=== PATIENT | male | born 1970 | race Caucasian/White ===

== ENCOUNTER → 2016-11-22 | Outpatient (CLI) | payer OTHER ==
[~2016-11-22] VITALS: Ht 170.2 cm; Wt 77.5 kg
[~2016-11-22] MED LIST: BRINTELLIX20 MG PO; FENTANYL PA25 MCG/HR TRANSDERM; FENTANYL PA50 MCG/HR TRANSDERM; FETZIMA20 MG PO; HYDROCODON-ACE1 EAC5 PO; IBUPROFEN 200200 M1 PO; LAMICTAL100 MG PO; REMERON 30 MG T30 M1 PO; SAPHRIS10 MG SL; SOMA PO; VIIBRYD40 MG PO; VYVANSE50 MG PO; Vyvanse PO
--- NOTE | ~2016-11-22 | HPC ---
[facility] [address] [address] [address] PAIN MANAGEMENT CONSULTATION Name: GRACIELA MULLEN Room #: REG PB Shameka.#: [id number] Admission: 11/22/16 Attend Phys: Dillon Conti MD Discharge: Date of : 74 Report #: [id number] THIS REPORT FOR: //name// CC: Chika Conti DATE OF SERVICE: 11/22/2016 Followup visit for management of high risk medication for intractable pain. The patient returns to pain clinic today for renewal of his pain medication, he is on a fentanyl patch 25 mcg, he takes about 1 hydrocodone per day as needed for breakthrough pain at an average. I gave him 90 tablets, which usually last about 3 months. He will take 1 tablet if the pain is severe or before activities and this has done pretty well for him. He has shown no misuse or abuse of medications and he has no significant side effects. 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 and he is getting ready to enter the work force. He and his are planning to take a vacation this weekend. He seems positive and happy about that. Pain score today is zero. It is aided directly by medication. He would like to continue with medication, although we have talked about the possibility of trying to taper further on his fentanyl. We have been able to taper from 50 to 25 and I would like him to consider at some point, we might try and taper further. Using lowest dose of opioids remains our focus. He is on less than the recommended maximum morphine milligram equivalent of 90 by the CDC. We have agreed to continue seeing him for medication under terms of our agreement. PHYSICAL EXAMINATION: Blood pressure 129/80, heart rate 103, BMI is 26.7. He has no pain today with sitting, standing, walking. His gait is normal. No pain across the low back. IMPRESSION: 1. Chronic back pain without radiculopathy due to spondylosis. 2. Management of high risk medications of fentanyl and low dose hydrocodone. 3. Hypertension. RECOMMENDATIONS: Today, I reviewed important issues related to the use of opioids and other potent, centrally-acting medications for the treatment of pain. Rationale for the use of medication is to reduce pain and improve daily activities and function. These activities, individualized for each patient, include simple activities of daily living, improvement in work capabilities, increased involvement in family and other social activities. Improvement in [facility] [address] [place] [address] PAIN MANAGEMENT CONSULTATION Name: GRACIELA MULLEN Room #: REG CLShaggy Antoine#: [id number] Admission: 11/22/16 Attend Phys: Dillon Conti MD Discharge: Date of : 74 Report #: [id number] psychosocial elements of chronic pain were discussed in a broader conversation of wellness that included nonpharmacologic measures to manage pain, suffering and efforts to enhance well being. Remaining as physically active as possible for age and ability plays a tremendous role in the management of chronic pain. This was encouraged. We reviewed potential medication side effects, toxicities and drug interactions, employing strategies to manage problems identified. Pain medications have potential side effects, and patients should exercise caution when operating machinery or driving. We discussed in detail the dramatic increase in the Emergency Room visits, hospitalizations and deaths related to misuse and diversion of prescription pain medications in [place]. This opioid crisis in [place] requires both physicians and patients alike to safely use all medications. Safeguarding of medications by keeping them safely locked up or out of reach of others is a critical patient responsibility to ensure that medications are not diverted to others. We discussed the Center for Disease Control (CDC) guidelines for safe use of opioids and the efforts to standardize opioid prescribing to prevent complications. These include guidelines which we strive to meet. They include the standardization of various opioids to morphine milligram equivalents (MME) and also stress the use of the lowest effective dose. Efforts to remain within daily maximum dosing guidelines will also be of focus of treatment. Addiction versus therapeutic use of medication includes routine followup, single prescriber, single pharmacy and the use of random drug screens and other tools to ensure safe prescribing. A signed agreement outlying these issues has been reviewed and remains on the patient chart. Prescriptions were provided today under terms of that agreement, and followup for him is planned in 3 months. Follow up as needed in 3 months. <ELECTRONICALLY SIGNED> By: Dillon Conti MD 12/15/16 1130 [id number] Dillon Conti MD /nt
[2016-11-22 13:18] VITALS: BP 129/88
== END | disposition home or self-care (01) ==
LOC: PAIN 07:13
DX: M47.896 Other spondylosis, lumbar region (principal); G89.29 Other chronic pain; I10 Essential (primary) hypertension

== ENCOUNTER → 2017-03-07 | Outpatient (CLI) | payer OTHER ==
[~2017-03-07] VITALS: Ht 170.2 cm; Wt 71.9 kg
[~2017-03-07] MED LIST changes: +MOBIC15 MG PO
--- NOTE | ~2017-03-07 | HPC ---
[facility] [address] [address] PAIN MANAGEMENT CONSULTATION Name: GRACIELA MULLEN Room #: REG PB Myles.#: [id number] Admission: 03/07/17 Attend Phys: Dillon Conti MD Discharge: Date of : 74 Report #: [id number] THIS REPORT FOR: //name// CC: Chika Lavon Conti DATE OF SERVICE: 03/07/2017 Followup visit for chronic low back pain. The patient returns to pain clinic today and says he is having some increases in pain. His pain score is 4/10. He has had longstanding back pain since 2002 and has been on opioids for quite some time. He first began receiving medication in our clinic in January of 2015, so it has been over 2 years in our clinic in several years prior to that [place]. Medications have been helpful for him. With them, he has been able to return to school, finished some classes and now he has a job in IT support. He says that he has some ongoing insomnia, he suffered in the past from depression. PHYSICAL EXAMINATION: GENERAL: He is pleasant, seems a little flat today. VITAL SIGNS: Blood pressure 141/95, heart rate 107, BMI is 24.8. Moves from a sitting to standing position, ambulates without difficulty. MUSCULOSKELETAL: Examination of the spine reveals tenderness across the lumbosacral segment. Straight leg raising is negative bilaterally. Sensation is intact. No focal weakness is noted. IMPRESSION: 1. Chronic low back pain without radiculopathy. 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 2. Management of high risk medications, Fentanyl and low dose hydrocodone. 3. Hypertension. RECOMMENDATIONS: I have recommended that we add Meloxicam 15 mg daily. Side effects from medication were reviewed including GI, cardiac and renal. Importance of remaining well hydrated was discussed. I will continue his current opioid dose and hopefully the Meloxicam will allow him to get better control of the spondylitic pain. Followup visit planned in 3 months. By: [id number] Dillon Conti MD /nt
[2017-03-07 09:42] VITALS: BP 141/95
== END | disposition home or self-care (01) ==
LOC: PAIN 07:24
DX: M47.896 Other spondylosis, lumbar region (principal); G89.29 Other chronic pain; M46.96 Unspecified inflammatory spondylopathy, lumbar region; I10 Essential (primary) hypertension; F11.20 Opioid dependence, uncomplicated

== ENCOUNTER → 2017-04-25 | Outpatient (CLI) | payer OTHER ==
[~2017-04-25] VITALS: Ht 170.2 cm; Wt 70.9 kg
[~2017-04-25] MED LIST changes: +CLONAZEPAM 0.50.5 M1 PO
--- NOTE | ~2017-04-25 | HPC ---
[facility] [address] [place] [address] PAIN MANAGEMENT CONSULTATION Name: GRACIELA MULLEN Room #: REG PB Myles.#: [id number] Admission: 04/25/17 Attend Phys: Dillon Conti MD Discharge: Date of : 74 Report #: [id number] THIS REPORT FOR: //name// CC: Chika Conti DATE OF SERVICE: 04/25/2017 Followup visit for chronic low back pain with radiation into the hips and left leg. The patient returns to pain clinic today for an epidural injection. He has worsening pain of radicular nature down into the left leg, which he describes as pins and needles to the left foot. We do not have a current MRI. I have treated him with medication which was initiated prior to he has moved to [place]. We have been continuing him on an opioid contract with fentanyl 25 mcg patch along with breakthrough hydrocodone 10/325 mg 3 times daily as needed. Other medication includes meloxicam. He reports today that his pain is 7/10, sharp, it is worse with standing, prolonged sitting and lifting. PHYSICAL EXAMINATION: Blood pressure 135/91, heart rate is 99. His BMI is 24.5. He is pleasant. Affect is flat. He moves from a sitting to standing position. He ambulates with mild antalgic features. He has pain with forward flexion and extension. Straight leg raising is mildly positive on the left consistent with radiculopathy. I reviewed records from 06/15/2015. At that time, we performed a right paramedian epidural injection for him. He reported this provided substantial improvement in his pain allowing him to get by with medication doses remaining stable without elevation. Today, pain is more persistent on the contralateral side of the left. I have agreed to proceed with the injection again at L4-L5. This should cover the dermatomes which are involved in this current pain distribution. PROCEDURE: He was taken to fluoroscopic suite, placed prone, skin prepped with ChloraPrep. Skin was anesthetized over the L4-L5 interspace. A 20-gauge Tuohy epidural needle advanced in the epidural space using loss of resistance. No blood or CSF aspirated. 1 mL of Omnipaque injected with good spread of dye along the left lateral recess. It was then followed by 3 mL of 0.5% lidocaine mixed with 80 mg of triamcinolone. He tolerated the procedure well and was observed for 45 minutes and discharged. [address] [address] PAIN MANAGEMENT CONSULTATION Name: GRACIELA MULLEN Room #: REG CLI Antoine#: [id number] Admission: 04/25/17 Attend Phys: Dillon Conti MD Discharge: Date of : 74 Report #: [id number] Followup visit planned as needed. By: [id number] Dillon Conti MD /nt
[2017-04-25 09:54] VITALS: BP 135/91
== END | disposition home or self-care (01) ==
LOC: PAIN 09:40
DX: M54.16 Radiculopathy, lumbar region (principal)

== ENCOUNTER → 2017-06-03 | Outpatient (CLI) | payer OTHER ==
[~2017-06-03] VITALS: Ht 172.7 cm; Wt 71.6 kg
--- NOTE | ~2017-06-03 | HPC ---
[facility] [address] [address] PAIN MANAGEMENT CONSULTATION Name: GRACIELA MULLEN Room #: REG PB SmithCarlos EduardoMarky.#: [id number] Admission: 06/03/17 Attend Phys: Dillon Conti MD Discharge: Date of : 74 Report #: [id number] THIS REPORT FOR: //name// CC: Chika Lavon Conti DATE OF SERVICE: 06/03/2017 Followup visit for chronic intractable pain with medication management. The patient returns to the pain clinic today for renewal of his medications. He is currently taking [place] 10/325 while utilizing a 25 mcg fentanyl patch. He has been provided these medications in our clinic through an opioid agreement established on 04/14/2015. It provides relief to his back and legs with good analgesia. His activities have been aided by this good pain relief and he has been able to finish school and get a job. He reports that he recently was laid off from his job, but he is hoping to get back to it. He denies any significant side effects from his medication. He understands the opioid crisis as it has been discussed at each visit and safeguards his medications. Today, pain is 2/10, exacerbated by sitting and standing. MEDICATIONS: Listed are clonazepam 0.5 as needed for anxiety, meloxicam 15 mg p.r.n., hydrocodone 10/325 mg 1-2 tablets for breakthrough pain, fentanyl 25 mcg patch q. 72 hours, lamotrigine 100 mg daily Fetzima 20 mg daily. ALLERGIES: None. PHYSICAL EXAMINATION: His affect is a bit flat, but he is pleasant, soft spoken. Blood pressure 138/101, heart rate 96, respirations 16. BMI is 24.0. He has some pain and tenderness across his low back. Straight leg raising reproduces some pain into the left leg today. Pain is worsened with back extension consistent with facet arthropathy. IMPRESSION: 1. Chronic intractable back pain. 2. Management of high risk medication. 3. Hypertension. 4. History of anxiety, depression with insomnia. RECOMMENDATIONS: Continue current medicines under terms of our opioid [facility] [address] [place] [address] PAIN MANAGEMENT CONSULTATION Name: GRACIELA MULLEN Room #: REG Shaggy Myles.#: [id number] Admission: 06/03/17 Attend Phys: Dillon Conti MD Discharge: Date of : 74 Report #: [id number] agreement. Safeguarding of medications required. We will plan to see him back in 3 months. By: [id number] Dillon Conti MD /nt
[2017-06-03 09:00] VITALS: BP 138/101
== END | disposition home or self-care (01) ==
LOC: PAIN 07:18
DX: G89.29 Other chronic pain (principal); I10 Essential (primary) hypertension; F41.9 Anxiety disorder, unspecified; F32.9 Major depressive disorder, single episode, unspecified

== ENCOUNTER → 2017-12-12 | Outpatient (CLI) | payer OTHER ==
[~2017-12-12] VITALS: Ht 170.2 cm; Wt 72.1 kg
[~2017-12-12] MED LIST changes: +DURAGESIC1 EAC2 TRANSDERM; +DURAGESIC25 MCG/HR TRANSDERM; +Duragesic 25 mcg Pat TRANSDERM; +FETZIMA120 MG PO; +REMERON15 MG PO; +WELLBUTRIN SR150 MG PO; +duragesic TRANSDERM
--- NOTE | ~2017-12-12 | HPC ---
[facility] [place] [address] [address] PAIN MANAGEMENT CONSULTATION Name: GRACIELA MULLEN Room #: REG PB Shameka.#: [id number] Admission: 12/12/17 Attend Phys: Dillon Conti MD Discharge: Date of : 74 Report #: [id number] THIS REPORT FOR: //name// CC: Chika Lavon Conti DATE OF SERVICE: 12/12/2017 REASON FOR VISIT: Followup visit for chronic low back pain with radiculopathy following the left L4-L5 distribution and management of high-risk medications in the face of polypharmacy. HISTORY OF PRESENT ILLNESS: The patient returns to the pain clinic today in followup for medication management. He states that he has been worse over the course of the last month. His activity has reduced. He does, however, continue to work full 40-hour schedule and stress, I am sure, increases his pain. He struggles with depression and has been followed by a psychiatrist and has had some new adjustments to his medications. I have reviewed and reconciled all medications with him. Centrally acting medications include the fentanyl patch 25 mcg and hydrocodone one tablet to two tablets daily for breakthrough pain. MEDICATIONS: Wellbutrin 150 mg daily, clonazepam 0.5 mg b.i.d. p.r.n., lamotrigine daily, Fetzima 20 mg daily and ibuprofen p.r.n. ALLERGIES: None. 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 Denies use of any substances including tobacco or alcohol. He has an upcoming vacation planned for 10 days to [place]. He walks about 3 days a week. He does not like the cold weather and has been doing treadmill exercise. PHYSICAL EXAMINATION: GENERAL: Pleasant 47-year-old. His affect is a bit flat. His blood pressure is 142/97, heart rate 115, respirations 18 and his BMI is 24.9. MUSCULOSKELETAL: Stable and independently and easily moved from sitting to standing position and ambulates without an antalgic gait. He has pain with back extension, mostly across the low back with little reproduction of pain in the legs. Straight leg raising in the sitting position is negative as well as in the supine position. Sensation is described as diminished in the lower extremity. He has a vice-like tight aching sensation into his calf and foot. Deep tendon reflexes are 2+ at knees and symmetrical. He has absent ankle jerk reflex on the left and trace on the right. The left is a symptomatic side. Strength is judged to be normal and symmetrical with no focal weakness. IMPRESSION: [facility] [address] [place] [address] PAIN MANAGEMENT CONSULTATION Name: GRACIELA MULLEN Room #: REG [facility].#: [id number] Admission: 12/12/17 Attend Phys: Dillon Conti MD Discharge: Date of : 74 Report #: [id number] 1. Chronic low back pain with radiculopathy on the left following an L4-L5 symptomatic distribution. This is worsening. 2. Management of high-risk medications with opioid agreement. He is on polypharmacy and medications are provided by his psychiatrist and by myself. 3. History of anxiety and depression. 4. Hypertension. PLAN: 1. With his worsening symptoms, I have suggested that we check an MRI. This may help determine next steps in therapy. I do not have a recent MRI over the course of the last several years. 2. Continue on medication, fentanyl with 1-2 hydrocodone tablets for breakthrough pain per day, not to exceed 2. His MME given the high fentanyl correlation is roughly 80-85 MME per day. A 25 mcg fentanyl patch accounts for roughly 65 MME alone. Our goal after reviewing the MRI would be to consider targeted epidural therapy for his radiculopathy to provide relief and allow us to taper this reliance on opioids. He may be a candidate also for additional interventions including spinal cord stimulation. I would like to avoid spinal surgery. Followup visit planned once the MRI is completed. We will seek preauthorization today. <ELECTRONICALLY SIGNED> By: Dillon Conti MD 01/01/18 1640 [id number] [id number] Dillon Conti MD /nt
[2017-12-12 09:56] VITALS: BP 142/97
== END ==
LOC: PAIN 06:54
DX: M54.16 Radiculopathy, lumbar region (principal); I10 Essential (primary) hypertension; F41.9 Anxiety disorder, unspecified; F32.9 Major depressive disorder, single episode, unspecified; Z79.899 Other long term (current) drug therapy

== ENCOUNTER → 2017-12-13 | Outpatient (CLI) | payer OTHER | LOC: MRI 09:00 | DX: M51.37 Other intervertebral disc degeneration, lumbosacral region (principal); M54.16 Radiculopathy, lumbar region; M51.27 Other intervertebral disc displacement, lumbosacral region; M43.8X5 Other specified deforming dorsopathies, thoracolumbar region; M47.897 Other spondylosis, lumbosacral region ==

== ENCOUNTER → 2018-01-02 | Outpatient (CLI) | payer OTHER ==
[~2018-01-02] VITALS: Ht 172.7 cm; Wt 75.9 kg
--- NOTE | ~2018-01-02 | HPC ---
[facility] [place] [address] [address] [place] [address] PAIN MANAGEMENT CONSULTATION Name: GRACIELA MULLEN Room #: REG PB Shameka.#: [id number] Admission: 01/02/18 Attend Phys: Dillon Conti MD Discharge: Date of : 74 Report #: [id number] THIS REPORT FOR: //name// CC: Chika Conti DATE OF SERVICE: 01/02/2018 Followup visit for low back pain with radiculopathy. The patient returns to pain clinic today, and we had an opportunity to review his MRI. He has mild disk bulging at L4-L5 with a right foraminal to far lateral annular tear, best seen on images 22-23 of the films. There is also degenerative facet disease at that level and bulging causing ventral surface effacement of the L4 nerve roots. At L5-S1, there is also a small broad-based central disk protrusion with a posterior annular tear measuring 15 mm transverse. There is a subtle effacement in the ventral surface of the right S1 nerve root. There is no significant canal stenosis. He continues to experience pain across the low back with radiculopathy and has responded in the past to epidural injections. His most recent epidural injection was performed on 04/25/2017. He would like to get another injection. He continues on medication, which we provide for him under terms of a written opioid agreement. His currently daily dose is fentanyl 25 mcg q. 72 hours and hydrocodone 10/325 one tablet 3 times a day to help with breakthrough pain. This has allowed him to be more functional. He just returned from a long vacation in [place] where he did multiple dives. He enjoys scuba diving very much. He has been trying to exercise. 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 PHYSICAL EXAMINATION: Moves from sitting to standing position, walks with a rigid, somewhat stiff gait. He has pain across the low back, pain with forward flexion and extension. Straight leg raising produces a vice-like tense sensation into his calf and foot, more on the left than the right. IMPRESSION: Chronic low back pain with radiculopathy. Degenerative disk disease, L4-L5 and L5-S1. RECOMMENDATIONS: We will repeat epidural injection today under fluoroscopic guidance. He was taken to fluoroscopic suite for procedure, placed prone, skin prepped with ChloraPrep. Skin was anesthetized at L4-L5. A 20-gauge Tuohy epidural needle advanced in the epidural space with loss of resistance technique. There was no blood or CSF aspirated. 1 mL of Omnipaque injected with good spread of [address] [address] PAIN MANAGEMENT CONSULTATION Name: GRACIELA MULLEN Room #: REG PB Schultz#: [id number] Admission: 01/02/18 Attend Phys: Dillon Conti MD Discharge: Date of : 74 Report #: [id number] dye observed in the epidural space, was followed by 3 mL of 0.5% lidocaine mixed with 80 mg of triamcinolone. He tolerated the procedure well and was observed for 45 minutes and discharged. Follow up as needed. <ELECTRONICALLY SIGNED> By: Dillon Conti MD 02/10/18 1408 1328 [id number] Dillon Conti MD /nt
[2018-01-02 09:49] VITALS: BP 156/112
== END ==
LOC: PAIN 07:11
DX: G89.29 Other chronic pain (principal); M54.16 Radiculopathy, lumbar region

== ENCOUNTER → 2018-05-29 | Outpatient (CLI) | payer OTHER ==
[~2018-05-29] VITALS: Ht 172.7 cm; Wt 73.9 kg
[~2018-05-29] MED LIST changes: -DURAGESIC1 EAC2 TRANSDERM; -Duragesic 25 mcg Pat TRANSDERM; -duragesic TRANSDERM
--- NOTE | ~2018-05-29 | HPC ---
[facility] [place] [address] [address] PAIN MANAGEMENT CONSULTATION Name: GRACIELA MULLEN Room #: REG LASHAWNShaggy Myles.#: [id number] Admission: 05/29/18 Attend Phys: Dillon Conti MD Discharge: Date of : 74 Report #: [id number] THIS REPORT FOR: //name// CC: Chika Doll TOM Conti DATE OF SERVICE: 05/29/2018 Followup visit for chronic low back pain. The patient returns to pain clinic today for renewal of his medication. He remains on an opioid agreement providing fentanyl 25 mcg q. 72 hours and hydrocodone 3 times a day. He takes them roughly on schedule. Although the hydrocodone to be flexible depending on the amount of pain that he has. When he was last here he was under a great deal of stress. 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 The patient reports that time period has passed, he seems more relaxed and this is reflected also when his pain management and his pain management scores which are 2 today versus 8 on his last visit. He says his pain medications are useful in allowing him to be more comfortable throughout the day, allowing him to complete his job and he has very few if any side effects. He has carefully safeguarded his medication. He understands that there are potential complications with long-term use including side effects and constipation. For now, the medication is considered to be an important part of his polypharmacy treatment. He continues to see a psychiatrist for insomnia and some memory issues and emotional problems. In addition to his pain medications he is on other centrally acting medications including lamotrigine, clonazepam, bupropion, mirtazapine. There does not seem to be significant seds-do-spzh side effect at this time. We will continue his pain medication. PHYSICAL EXAMINATION: Pleasant, alert and oriented, without signs of overmedication. His affect is again more bright and pleasant today. Less anxious. Blood pressure 122/50, heart rate 102, respirations 16. BMI 24.8. Able to move independently from sitting to standing position and his gait is stiff, but not antalgic. He has some tenderness in the left hip and straight leg raising discomfort described as aching, dull, throbbing sensation. Prolonged standing, worsens this. IMPRESSION: 1. Chronic low back pain with radiculopathy, degenerative disk disease noted at L4-L5 and L5-S1. 2. Management of high risk medications under terms of written opioid agreement. [address] [address] PAIN MANAGEMENT CONSULTATION Name: GRACIELA MULLEN Room #: REG PB SmithMadeline#: [id number] Admission: 05/29/18 Attend Phys: Dillon Conti MD Discharge: Date of : 74 Report #: [id number] PLAN: 1. I renewed his fentanyl patch at 25 mcg. I have continued his hydrocodone at 10/325 mg 3 times daily. 2. Follow up in the pain clinic in 3 months. Urine drug screen will be performed at subsequent visit. By: [id number] Dillon Conti MD /nt
[2018-05-29 10:01] VITALS: BP 122/90
== END ==
LOC: PAIN 06:16
DX: M51.16 Intervertebral disc disorders with radiculopathy, lumbar region (principal); G89.29 Other chronic pain; Z79.891 Long term (current) use of opiate analgesic

== ENCOUNTER → 2018-08-13 | Outpatient (CLI) | payer OTHER ==
[~2018-08-13] VITALS: Ht 172.7 cm; Wt 75.1 kg
[~2018-08-13] MED LIST changes: +DURAGESIC1 EAC2 TRANSDERM; +Duragesic 25 mcg Pat TRANSDERM; +duragesic TRANSDERM
--- NOTE | ~2018-08-13 | HPC ---
[facility] [place] [address] PAIN MANAGEMENT CONSULTATION Name: GRACIELA MULLEN Room #: REG PB Myles.#: [id number] Admission: 08/13/18 Attend Phys: Dillon Conti MD Discharge: Date of : 74 Report #: [id number] THIS REPORT FOR: //name// CC: Chika Conti REASON FOR CONSULTATION: Followup visit for chronic low back pain, medication management of intractable pain. HISTORY OF PRESENT ILLNESS: The patient returns to pain clinic here for renewal of his fentanyl. He is at 25 mcg now q. 72 hours with hydrocodone 3 times for breakthrough pain. This is lower dose for him than we initially used. He has done well at that dose now; however, for over 2 years. He reports that he is doing well at work and at home. Denies any significant side effects from his medication. This is grateful for the pain relief it provides him and his ability to work more effectively. He does not feel it could be as active without the pain medication. He safeguards his medication carefully under terms of our agreement. I have not performed drug testing and I have ordered a buccal screen, which will be performed today before discharge from the clinic. PHYSICAL EXAMINATION: GENERAL: Pleasant gentleman in no acute distress. He is relaxed and easy going today. VITAL SIGNS: His blood pressure is 117/76, heart rate is 96, respirations 16. BMI is 25.2. He has mild tenderness across his low back. He is a bit stiff moving from sitting to standing position, walks with a fairly rigid gait. IMPRESSION: 1. Chronic low back pain. 2. Management of high risk medications under terms of written opioid agreement. 3. Anxiety and depression, which seemed to be well controlled at this point. 4. Hypertension. PLAN: I renewed medications per terms of our agreement for 3 months with release date prescriptions at 4 and 8 weeks. We talked about his morphine milligram equivalency and the importance of safeguarding all medications. Followup visit planned in 3 months. By: 1721 0220 Dillon Conti MD /nt
[2018-08-13 09:17] VITALS: BP 117/79
== END ==
LOC: PAIN 06:42
DX: M54.5 Low back pain (principal); G89.4 Chronic pain syndrome; I10 Essential (primary) hypertension; F32.9 Major depressive disorder, single episode, unspecified; F41.9 Anxiety disorder, unspecified; Z79.891 Long term (current) use of opiate analgesic; Z79.899 Other long term (current) drug therapy

== ENCOUNTER → 2018-11-26 | Outpatient (CLI) | payer OTHER ==
[~2018-11-26] VITALS: Ht 172.7 cm; Wt 79.7 kg
[~2018-11-26] MED LIST changes: -LAMICTAL100 MG PO; +LAMICTAL200 MG PO; +QUETIAPINE FUM100 MG PO
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
[2018-11-26 12:49] VITALS: BP 132/95
--- NOTE | 2018-11-26 13:03 | NUR ---
Pain Clinic Assessment: 1. History of Osteoarthritis: Not Applicable History of Rheumatoid Arthritis: Not Applicable 2. Height: 5 ft. 8 in. 172.7 cm. Weight: 175.6 lb. oz. 79.652 kg. Patient's BMI: 26.7 3. Vital Signs: BP: 132/95 Pulse: 95 Resp: 14 Temp: 02 Sat: 100 ECG Mon: 4. Pain Intensity: 2-3 5. Fall Risk: Dizziness: N Needs help standing or walking: N Fallen in the last 3 months: N Fall risk comments: 6. Patient on Blood Thinner: None 7. History of Hypertension: N 8. Opioid Therapy greater than 6 weeks: Y Opiate Contract Signed: 05/28/16 9. Risk Assessment Tool Provided: LOW RISK 11/06 10. Functional Assessment Tool: 11. Recreational Drug Use: Never Drug Type: Tobacco Use: Never Smoker Tobacco Type: Amount or Packs/day: How Many Years: Alcohol Use: No Frequency: Quant:
== END ==
LOC: PAIN 07:06
DX: M47.816 Spondylosis without myelopathy or radiculopathy, lumbar region (principal); G89.29 Other chronic pain; V89.2XXA Person injured in unspecified motor-vehicle accident, traffic, initial encounter; Z79.891 Long term (current) use of opiate analgesic; Z79.899 Other long term (current) drug therapy

== ENCOUNTER → 2019-02-26 | Outpatient (CLI) | payer OTHER ==
[~2019-02-26] VITALS: Ht 172.7 cm; Wt 78.7 kg
[~2019-02-26] MED LIST changes: +ESCITALOPRAM OX20 MG PO
--- NOTE | ~2019-02-26 | HPC ---
[facility] [address] [address] PAIN MANAGEMENT CONSULTATION Name: GRACIELA MULLEN Room #: REG PB Shameka.#: [id number] Admission: 02/26/19 ������������������ Attend Phys: Dillon Conti MD Discharge: ������������������ Date of : 74 Report #: [id number] THIS REPORT FOR: //name// CC: BEATRIZ Conti DATE OF SERVICE: 02/26/2019 CHIEF COMPLAINT: Followup visit for management of chronic intractable low back pain and intermittent left shoulder pain. HISTORY OF PRESENT ILLNESS: The patient is in the clinic today for 15-20 minute followup visit. His pain is well controlled on current regimen. Pain score is 3. He has no significant side effects. He carefully monitors his medication. We have had no red flag behaviors. His most recent drug screen is appropriate as is his prescription drug monitoring information. He has recently lost his job and is now in between contracts. He works in IT. He has some chronic anxiety and depression. He opened up about his loss of a child at his last visit. This certainly colors much of his emotional and psychological makeup in character. We discussed it today again briefly. Parents never get over losing a child. We talked about tapering his medications sometime in the future to the lowest effective dose. I will wait to do that today. His MME is 87. We discussed the CDC guidelines and the need to carefully monitor and safeguard his medications, which he has promised us he does. He has had no other medical issues of no hospitalizations, no Emergency Room visits. PHYSICAL EXAMINATION: GENERAL: Today, he is pleasant, alert and oriented. VITAL SIGNS: Blood pressure is 132/95, heart rate 95, respirations 14. He is 5 feet 8 inches, 175 pounds, BMI 26.7. EXTREMITIES: Move easily from sitting to standing position. He has some tenderness in his left shoulder. He has pain and tenderness across his low back with forward flexion and extension. IMPRESSION: 1. Chronic intractable low back pain with lumbago. 2. Osteoarthritis. Complains of shoulder issues. 3. Management of high risk medications under terms of written opioid agreement. [facility] [address] [place] [address] PAIN MANAGEMENT CONSULTATION Name: GRACIELA MULLEN [id number] Admission: 02/26/19 ������������������ Attend Phys: Dillon Conti MD Discharge: ������������������ Date of : 74 Report #: [id number] PLAN: Follow up in 3 months. Dated prescriptions were provided for fentanyl 25 mcg patch q. 72 hours and hydrocodone 10/325 one tablet 3 times a day for breakthrough pain. ��������������������������������������������� ���������������������������������������� By: ��������������������������������������������� [id number] [id number] Dillon Conti MD /nt
[2019-02-26 10:55] VITALS: BP 132/91
--- NOTE | 2019-02-26 11:11 | NUR ---
Pain Clinic Assessment: 1. History of Osteoarthritis: Not Applicable History of Rheumatoid Arthritis: Not Applicable 2. Height: 5 ft. 8 in. 172.7 cm. Weight: 173.4 lb. oz. 78.654 kg. Patient's BMI: 26.4 3. Vital Signs: BP: 132/91 Pulse: 81 Resp: 14 Temp: 02 Sat: 97 ECG Mon: 4. Pain Intensity: 3 5. Fall Risk: Dizziness: N Needs help standing or walking: N Fallen in the last 3 months: N Fall risk comments: 6. Patient on Blood Thinner: None 7. History of Hypertension: N 8. Opioid Therapy greater than 6 weeks: Y Opiate Contract Signed: 05/28/16 9. Risk Assessment Tool Provided: LOW RISK 11/06 10. Functional Assessment Tool: 11. Recreational Drug Use: Never Drug Type: Tobacco Use: Never Smoker Tobacco Type: Amount or Packs/day: How Many Years: Alcohol Use: No Frequency: Quant:
== END ==
LOC: PAIN 07:03
DX: G89.29 Other chronic pain (principal); M25.512 Pain in left shoulder; M54.40 Lumbago with sciatica, unspecified side; M19.90 Unspecified osteoarthritis, unspecified site; Z79.891 Long term (current) use of opiate analgesic

== ENCOUNTER → 2019-05-21 | Outpatient (CLI) | payer OTHER ==
[~2019-05-21] VITALS: Ht 172.7 cm; Wt 85.7 kg
[~2019-05-21] MED LIST changes: +CARISOPRODOL 3350 MG PO
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
[2019-05-21 15:07] VITALS: BP 142/96
--- NOTE | 2019-05-21 15:32 | NUR ---
Pain Clinic Assessment: 1. History of Osteoarthritis: Not Applicable History of Rheumatoid Arthritis: Not Applicable 2. Height: 5 ft. 8 in. 172.7 cm. Weight: 189.0 lb. oz. 85.730 kg. Patient's BMI: 28.7 3. Vital Signs: BP: 142/96 Pulse: 85 Resp: 16 Temp: 02 Sat: 97 ECG Mon: 4. Pain Intensity: 7 5. Fall Risk: Dizziness: N Needs help standing or walking: N Fallen in the last 3 months: N Fall risk comments: 6. Patient on Blood Thinner: None 7. History of Hypertension: N 8. Opioid Therapy greater than 6 weeks: Y Opiate Contract Signed: 05/28/16 9. Risk Assessment Tool Provided: LOW RISK 1 10. Functional Assessment Tool: 11. Recreational Drug Use: Never Drug Type: Tobacco Use: Never Smoker Tobacco Type: Amount or Packs/day: How Many Years: Alcohol Use: No Frequency: Quant:
== END ==
LOC: PAIN 13:49
DX: M54.5 Low back pain (principal); G89.29 Other chronic pain; M19.90 Unspecified osteoarthritis, unspecified site; Z79.891 Long term (current) use of opiate analgesic

== ENCOUNTER → 2019-07-09 | Outpatient (CLI) | payer OTHER ==
[~2019-07-09] VITALS: Ht 172.7 cm; Wt 86.7 kg
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
[2019-07-09 14:10] VITALS: BP 146/103
--- NOTE | 2019-07-09 14:16 | NUR ---
Pain Clinic Assessment: 1. History of Osteoarthritis: Not Applicable History of Rheumatoid Arthritis: Not Applicable 2. Height: 5 ft. 8 in. 172.7 cm. Weight: 191.2 lb. oz. 86.728 kg. Patient's BMI: 29.1 3. Vital Signs: BP: 146/103 Pulse: 89 Resp: 14 Temp: 02 Sat: 98 ECG Mon: 4. Pain Intensity: 7 5. Fall Risk: Dizziness: N Needs help standing or walking: N Fallen in the last 3 months: Y Fall risk comments: GETING SOMETHING OUT OF CLOSET/LOST BALANCE-LANDED ON BACK 6. Patient on Blood Thinner: None 7. History of Hypertension: N 8. Opioid Therapy greater than 6 weeks: Y Opiate Contract Signed: 05/28/16 9. Risk Assessment Tool Provided: LOW RISK 1 10. Functional Assessment Tool: 11. Recreational Drug Use: Never Drug Type: Tobacco Use: Never Smoker Tobacco Type: Amount or Packs/day: How Many Years: Alcohol Use: No Frequency: Quant:
== END ==
LOC: PAIN 06:59
DX: M54.12 Radiculopathy, cervical region (principal); M19.019 Primary osteoarthritis, unspecified shoulder; M54.5 Low back pain

== ENCOUNTER → 2019-07-22 | Outpatient (CLI) | payer OTHER | LOC: MRI 11:06 | DX: M54.12 Radiculopathy, cervical region (principal); M48.02 Spinal stenosis, cervical region; M50.221 Other cervical disc displacement at C4-C5 level; M89.38 Hypertrophy of bone, other site ==

== ENCOUNTER → 2019-08-03 | Outpatient (CLI) | payer OTHER ==
[~2019-08-03] VITALS: Ht 170.2 cm; Wt 85.7 kg
[~2019-08-03] MED LIST changes: +DURAGESIC1 EAC4 TRANSDERM; +HYDROCODONE-AP1 EA11 PO
[2019-08-03 12:35] VITALS: BP 138/94
--- NOTE | 2019-08-03 12:40 | NUR ---
Pain Clinic Assessment: 1. History of Osteoarthritis: Not Applicable History of Rheumatoid Arthritis: Not Applicable 2. Height: 5 ft. 7 in. 170.2 cm. Weight: 189.0 lb. oz. 85.730 kg. Patient's BMI: 29.6 3. Vital Signs: BP: 138/94 Pulse: 86 Resp: 16 Temp: 02 Sat: ECG Mon: 4. Pain Intensity: 4-5 5. Fall Risk: Dizziness: N Needs help standing or walking: N Fallen in the last 3 months: Y Fall risk comments: GETING SOMETHING OUT OF CLOSET/LOST BALANCE-LANDED ON BACK 6. Patient on Blood Thinner: None 7. History of Hypertension: N 8. Opioid Therapy greater than 6 weeks: Y Opiate Contract Signed: 05/28/16 9. Risk Assessment Tool Provided: LOW RISK 1 10. Functional Assessment Tool: 51/ 11. Recreational Drug Use: Never Drug Type: Tobacco Use: Never Smoker Tobacco Type: Amount or Packs/day: How Many Years: Alcohol Use: No Frequency: Quant:
--- NOTE | 2019-08-13 16:52 | HPC ---
[facility] [place] [address] [place] [address] PAIN MANAGEMENT CONSULTATION Name: GRACIELA MULLEN Room #: REG PB MylesCarlos Eduardo#: [id number] Admission: 08/03/19 Attend Phys: Dillon Conti MD Discharge: Date of : 74 Report #: [id number] THIS REPORT FOR: //name// CC: Farhat Conti DATE OF SERVICE: 08/03/2019 Followup visit for cervical radiculopathy, right arm. The patient returns to the pain clinic today in followup. I reviewed his MRI with him. It does not show much in the way of significant central spinal stenosis, but there is a moderately significant disk osteophyte complex, which effaces the ventral thecal sac. It causes mild central stenosis to 8-9 mm. More troublesome is its effect in the lateral recess where it causes foraminal stenosis near the exiting C7 nerve roots bilaterally. It is worse in my estimation on the right, which is consistent with his symptoms of right cervical radiculopathy. I think he is a good candidate for cervical epidural injection. He has really been limiting his activities and using his left arm to do a number of activities because of the pain. At last visit, we spent a lot of time discussing his polypharmacy regimen. We talked about perhaps reducing his reliance on some of his centrally acting medications and he has discussed this with Dr. Mancia. Dr. Mancia degrees and is in the process of tapering him off of two of his medications or at least tapering to a lower dose. These include clonazepam, Seroquel, and alprazolam. We have also discussed in the future a transition from his current regimen of fentanyl, hydrocodone to Suboxone. He would like to get off of his current opioid regimen. I discussed timing of this transition. I think it would be best to perform after the cervical epidural. He continues off work and we discussed his anxiety in crowds. He did tell me with some pleasure that he was able to attend a sport in [place], soccer game and enjoyed himself, able to find some space to get away when necessary. PHYSICAL EXAMINATION: Today, his blood pressure is 138/94, heart rate 86, respirations 16. His BMI is 29.6. He seems more relaxed, less intense today. Examination of the neck reveals tenderness. There is pain with neck extension, which reproduces pain radiating into the right arm. The pain extends all the way through the shoulder, biceps down into the forearm and hand, [place] [address] PAIN MANAGEMENT CONSULTATION Name: GRACIELA MULLEN Room #: REG [facility] Antoine#: [id number] Admission: 08/03/19 Attend Phys: Dillon Conti MD Discharge: Date of : 74 Report #: [id number] with some numbness in the C7-C8 distribution. IMPRESSION: 1. Cervical radiculopathy, right C6-C7 distribution. This is consistent with MRI findings. 2. Chronic osteoarthritis with history of shoulder pain. 3. Chronic low back pain with spondylosis. 4. Management of high-risk medications including opioids and polypharmacy regimen, working in conjunction with psychiatrist, Dr. Mancia. Followup visit for cervical epidural injections to be then followed by a transition to medication-assisted treatment to go off of fentanyl and hydrocodone. <ELECTRONICALLY SIGNED> By: Dillon Conti MD 08/13/19 [id number] Dillon Conti MD /nt
== END ==
LOC: PAIN 06:52
DX: M54.12 Radiculopathy, cervical region (principal); M19.012 Primary osteoarthritis, left shoulder; M19.011 Primary osteoarthritis, right shoulder; M47.816 Spondylosis without myelopathy or radiculopathy, lumbar region; Z79.891 Long term (current) use of opiate analgesic

== ENCOUNTER → 2019-08-20 | Outpatient (CLI) | payer OTHER ==
[~2019-08-20] VITALS: Ht 170.2 cm; Wt 85.8 kg
--- NOTE | ~2019-08-20 | HPC ---
[facility] [employer] [place] [address] PAIN MANAGEMENT CONSULTATION Name: GRACIELA MULLEN Room #: REG PB MylesCarlos Eduardo#: [id number] Admission: 08/20/19 Attend Phys: Dillon Conti MD Discharge: Date of : 74 Report #: [id number] THIS REPORT FOR: //name// CC: Farhat Conti DATE OF SERVICE: 08/20/2019 Followup visit for cervical radiculopathy, right C5-C6 distribution. The patient returns to pain clinic today for his cervical radicular pain. We scheduled him for an MRI, which was reviewed. There is not central stenosis, but there is a moderately significant disk osteophyte complex causing foraminal stenosis near the exiting C7 nerve roots bilaterally. He is here today for cervical epidural injection discussed at his last visit just 2-1/2 weeks ago. There have been no significant changes in his condition since that time. Other than the pain, may be slightly worse in his estimation. PQRS REVIEW: 1. History of osteoarthritis is not applicable. 2. BMI is 29.6. 3. Blood pressure 120/87, heart rate 87. 4. Pain intensity is 4/10. 5. He has been a fall risk due to dizziness. He fell getting something out of the closet, losing his balance. He is on a polypharmacy regimen, which may be something that can contribute. We have discussed this on multiple occasions. 6. No blood thinners. 7. History of hypertension, none. 8. He is on an opioid agreement, first signed in 2016. 9. Risk assessment tool score is 1, suggesting low risk for addiction. 10. Functional assessment score is 51/70. 11. Denies use of tobacco and alcohol. PHYSICAL EXAMINATION: GENERAL: Pleasant gentleman, calm, does not appear overly anxious. VITAL SIGNS: As noted above. NECK: Reveals tenderness throughout the occiput and down into the area of the vertebral prominence, worse on the right than the left. Neck extension reproduces radicular symptoms in the right arm. It goes as far as the hand and involves all fingers with some numbness and tingling. IMPRESSION: Cervical radiculopathy, right C6-C7 distribution. PROCEDURE: Cervical epidural injection C6-C7 under fluoroscopic guidance. DESCRIPTION OF PROCEDURE: The patient was taken to fluoroscopic suite for [address] [address] PAIN MANAGEMENT CONSULTATION Name: GRACIELA MULLEN Room #: REG PB Schultz#: [id number] Admission: 08/20/19 Attend Phys: Dillon Conti MD Discharge: Date of : 74 Report #: [id number] procedure, placed prone, skin prepped with ChloraPrep. Skin anesthetized over C6-C7. A 20-gauge Tuohy epidural needle was advanced first attempt in the epidural space with loss of resistance technique to the right of midline. A 0.25 mL of Omnipaque was injected and had an excellent epidurogram spreading to the right. This was then followed by 3 mL of 0.5% lidocaine mixed with 80 mg of triamcinolone. He tolerated the procedure well. Pain score was reduced to 1 at discharge. Followup visit planned for pain management as we continue to try and taper his medications carefully. By: [id number] Dillon Conti MD /nt
[2019-08-20 09:54] VITALS: BP 120/87
--- NOTE | 2019-08-20 10:11 | NUR ---
Pain Clinic Assessment: 1. History of Osteoarthritis: Not Applicable History of Rheumatoid Arthritis: Not Applicable 2. Height: 5 ft. 7 in. 170.2 cm. Weight: 189.2 lb. oz. 85.821 kg. Patient's BMI: 29.6 3. Vital Signs: BP: 120/87 Pulse: 87 Resp: 16 Temp: 02 Sat: 96 ECG Mon: 4. Pain Intensity: 4 5. Fall Risk: Dizziness: Y Needs help standing or walking: N Fallen in the last 3 months: N Fall risk comments: GETING SOMETHING OUT OF CLOSET/LOST BALANCE-LANDED ON BACK 6. Patient on Blood Thinner: None 7. History of Hypertension: N 8. Opioid Therapy greater than 6 weeks: Y Opiate Contract Signed: 05/28/16 9. Risk Assessment Tool Provided: LOW RISK 1 10. Functional Assessment Tool: 11. Recreational Drug Use: Never Drug Type: Tobacco Use: Never Smoker Tobacco Type: Amount or Packs/day: How Many Years: Alcohol Use: No Frequency: Quant:
== END | disposition home or self-care (01) ==
LOC: PAIN 06:54
DX: M54.12 Radiculopathy, cervical region (principal); G89.29 Other chronic pain; Z79.891 Long term (current) use of opiate analgesic

== ENCOUNTER → 2019-09-10 | Outpatient (CLI) | payer OTHER ==
[~2019-09-10] VITALS: Ht 170.2 cm; Wt 84.4 kg
--- NOTE | ~2019-09-10 | HPC ---
[facility] [address] [place] [address] PAIN MANAGEMENT CONSULTATION Name: GRACIELA MULLEN Room #: REG PB Myles.#: [id number] Admission: 09/10/19 Attend Phys: Dillon Conti MD Discharge: Date of : 74 Report #: [id number] THIS REPORT FOR: //name// CC: Farhat Conti DATE OF SERVICE: 09/10/2019 Followup visit for management of chronic intractable pain, cervical radiculopathy, chronic low back pain with radiculopathy, medication management under terms of written opioid agreement. The patient returns to pain clinic today and has reported some improvement following his cervical epidural injection. His overall pain score, however, remains high at 7/10. He describes a constant tingling and numbness that radiates from his right shoulder into his right arm and hand. He reports that he and his will be moving and his will be leaving [facility] to work in [place]. He intends in maintaining contact with his consultants in [place], although we will establish with a new primary care physician. He continues to follow with Dr. Mancia, his psychiatrist. He is on significant polypharmacy, which we have discussed on multiple visits. We reviewed his medications and he has made some efforts to decrease them. We have also made efforts to keep his opioid medications stable and I have monitored him carefully under the prescription drug monitoring program. He has denied misuse, abuse or overuse of his medications, although he is at significant risk of addiction by the opioid risk tool. He has an extremely strong history of family substance abuse, personal history of substance abuse and severe depression. His total ORT score is 18. He reports that the medications continue to make him feel cloudy. This is a combination of his medicines, lamotrigine, clonazepam, bupropion, Seroquel, Lexapro, are all taken on a daily basis. In addition to that, he has been on longstanding opioid and we have reduced his fentanyl by 50% since initiating his treatment in our clinic, but he remains on hydrocodone . His dose has not changed much there. His MME currently is 90. PQRS is negative for osteoarthritis. His BMI is 29.1. His vital signs: Blood pressure 128/94, respirations are 18, O2 sat 97, pulse is 79. Pain intensity 7/10. Functional assessment score is 51/70 quite high suggesting significant impact of his pain on day-to-day activities. Much of this may also be attributed to his severe psychiatric diagnoses and instability. He has fallen once in the last 3 months, getting something out of the closet when he fell, losing his balance. He denies use of blood thinner treatment for hypertension. [facility] [address] [place] [address] PAIN MANAGEMENT CONSULTATION Name: GRACIELA MULLEN Room #: REG PB Schultz#: [id number] Admission: 09/10/19 Attend Phys: Dillon Conti MD Discharge: Date of : 74 Report #: [id number] He is on an opioid agreement, which we reviewed in some detail, the importance of safeguarding his medications is critical. My primary concern is his polypharmacy. His , Rupinder oversees his medication. I have been in contact with her regarding this. We have discussed tapering his opioid medication and I would like to see her at some point in one of his visits before they transferred to [facility]. PHYSICAL EXAMINATION: He is pleasant and calm. He is not anxious today. His affect is muted somewhat by medication. Vital signs as noted in the PQRS. Neck range of motion is improved in flexion and extension. He continues to complain of some radicular symptoms in his right arm with neck extension. 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 He has some numbness in the right hand in the C6-C7 distribution. IMPRESSION: 1. Chronic intractable pain, multiple pain generators including low back pain with radiculopathy, cervicalgia with radiculopathy. 2. Chronic use of opioids, now on opioid agreement, which is monitored by our clinic through the prescription drug monitoring program and intermittent drug screen. 3. History of chronic intermittent depression. His depression has been severe and limiting over the course of the last 6-8 months. I do believe that he is more depressed and anxious than he was a year ago when he was working outside of the home. PLAN: His medications were renewed under terms of our written agreement. Prescriptions were prescribed by electronic computer system and paper copies were provided. Followup visit is planned in 1-3 months. By: [id number] Dillon Conti MD /nt
[2019-09-10 12:32] VITALS: BP 128/94
--- NOTE | 2019-09-10 12:38 | NUR ---
Pain Clinic Assessment: 1. History of Osteoarthritis: Not Applicable History of Rheumatoid Arthritis: Not Applicable 2. Height: 5 ft. 7 in. 170.2 cm. Weight: 186.0 lb. oz. 84.369 kg. Patient's BMI: 29.1 3. Vital Signs: BP: 128/94 Pulse: 79 Resp: 18 Temp: 02 Sat: 97 ECG Mon: 4. Pain Intensity: 7 5. Fall Risk: Dizziness: N Needs help standing or walking: N Fallen in the last 3 months: N Fall risk comments: GETING SOMETHING OUT OF CLOSET/LOST BALANCE-LANDED ON BACK 6. Patient on Blood Thinner: None 7. History of Hypertension: N 8. Opioid Therapy greater than 6 weeks: Y Opiate Contract Signed: 05/28/16 9. Risk Assessment Tool Provided: LOW RISK 1 10. Functional Assessment Tool: 11. Recreational Drug Use: Never Drug Type: Tobacco Use: Never Smoker Tobacco Type: Amount or Packs/day: How Many Years: Alcohol Use: No Frequency: Quant:
== END ==
LOC: PAIN 06:54
DX: G89.4 Chronic pain syndrome (principal); M54.5 Low back pain; F32.9 Major depressive disorder, single episode, unspecified

== ENCOUNTER → 2019-11-23 | Outpatient (CLI) | payer OTHER ==
[~2019-11-23] VITALS: Ht 170.2 cm; Wt 88.2 kg
[~2019-11-23] MED LIST changes: +DURAGESIC1 EACH TRANSDERM; +NARCAN4 MG NARES
[2019-11-23 12:38] VITALS: BP 132/94
--- NOTE | 2019-11-23 12:47 | NUR ---
Pain Clinic Assessment: 1. History of Osteoarthritis: Not Applicable History of Rheumatoid Arthritis: Not Applicable 2. Height: 5 ft. 7 in. 170.2 cm. Weight: 194.4 lb. oz. 88.179 kg. Patient's BMI: 30.4 3. Vital Signs: BP: 132/94 Pulse: 80 Resp: 16 Temp: 02 Sat: 97 ECG Mon: 4. Pain Intensity: 3-SOME DAYS 7 5. Fall Risk: Dizziness: N Needs help standing or walking: N Fallen in the last 3 months: Y Fall risk comments: GETING SOMETHING OUT OF CLOSET/LOST BALANCE-LANDED ON BACK 6. Patient on Blood Thinner: None 7. History of Hypertension: N 8. Opioid Therapy greater than 6 weeks: Y Opiate Contract Signed: 05/28/16 9. Risk Assessment Tool Provided: LOW RISK 1 10. Functional Assessment Tool: 51/70 11. Recreational Drug Use: Never Drug Type: Tobacco Use: Never Smoker Tobacco Type: Amount or Packs/day: How Many Years: Alcohol Use: No Frequency: Quant:
--- NOTE | 2019-11-26 17:02 | HPC ---
[facility] [address] [address] PAIN MANAGEMENT CONSULTATION Name: GRACIELA MULLEN Room #: REG PB Myles.#: [id number] Admission: 11/23/19 Attend Phys: Dillon Conti MD Discharge: Date of : 74 Report #: [id number] THIS REPORT FOR: //name// CC: Farhat Mancia MD DATE OF SERVICE: 11/23/2019 Followup visit for chronic low back pain, chronic cervical radiculopathy. Medication management of opioids under terms of written opioid agreement. The patient returns to pain clinic today in followup. He remains heavily medicated. I last saw him on 09/10/2019. At that visit, we addressed his polypharmacy as well as his opioids. We are obviously monitoring his opioids and his is partner in that. She dispenses his medications to him on a daily basis for pain. He does have significant risk of addiction by the opioid risk tool with a score of 18. Since starting in our clinic in 2014, we have been able to gradually decrease his medication. At one point, he was on fentanyl as high as 75 mcg and we are reducing him today to 12 mcg from 25. I have also made adjustments in reducing his hydrocodone by 25%. I would like to get him completely off of opioids as long as pain will allow. His history is complex from a psychiatric standpoint. While I am not managing his medications, I can see the results of them. He is cloudy and does not think clearly. He has had falls related to medication and is having difficulty with memory. All of this would suggest overmedication and I do not believe that we can blame all of these side effects on opioids. Our experience in fact has shown that many patients tolerate the opioids and monotherapy extremely well and even in combination with 1 or 2 low-dose complementary adjuncts are able to function. The patient is taking relatively high doses of Seroquel, lamotrigine and bupropion as well as clonazepam and Lexapro. He is struggling with sleep as well and this may be a result of his medication. PHYSICAL EXAMINATION: Today, he is pleasant and conversational bit forgetful. His speech is not slurred, but is slow. He is 5 feet 7 inches, 194. BMI of 30.4. Weight is slightly up from last visit. Blood pressure 132/94, heart rate 80, respirations 16, O2 sat 97. Pain intensity varies between a 3 and 7, it is a 3 during his visit. He moves independently from sitting to standing position, ambulates with a fairly stable gait, but he has fallen within the last 3 months. His chest is clear and his cardiac rhythm is regular. He has some pain with neck flexion, extension, and rotation and also tenderness and pain across the lumbosacral segment. There is no discomfort with straight leg raising today. [address] [address] PAIN MANAGEMENT CONSULTATION Name: GRACIELA MULLEN Room #: REG PB Schultz#: [id number] Admission: 11/23/19 Attend Phys: Dillon Conti MD Discharge: Date of : 74 Report #: [id number] IMPRESSION: 1. Chronic intractable pain with multiple pain generators including primarily low back with spondylosis and a history of cervicalgia with radiculopathy. 2. Chronic medication management with signed opioid agreement. I have recommended that we reduce his fentanyl to 12 mcg and continue to monitor his medications on a daily basis. I spoke with his by phone. 3. Significant polypharmacy causing oversedation with memory loss and excessive sleepiness during the day. I spoke with his , who says that he is constantly sleeping throughout the day. 4. History of severe chronic depression. PLAN: I will see him back in 3 months. Medications provided electronically. I did include Narcan spray in his prescription and discussed with his over the phone. <ELECTRONICALLY SIGNED> By: Dillon Conti MD 11/26/19 [id number] Dillon Conti MD /nt
== END ==
LOC: PAIN 07:00
DX: M54.5 Low back pain (principal); G89.4 Chronic pain syndrome; M54.12 Radiculopathy, cervical region; F32.9 Major depressive disorder, single episode, unspecified

== ENCOUNTER → 2020-05-09 | Outpatient (CLI) | payer OTHER ==
[~2020-05-09] VITALS: Ht 170.2 cm; Wt 86.5 kg
[~2020-05-09] MED LIST changes: +AMERGE2.5 MG PO; +CATAPRES-TTS 20.2 MG TOP; +EMGALITY120 MG/1 M SUBQ; +MELOXICAM7.5 MG PO
--- NOTE | ~2020-05-09 | HPC ---
[facility] [address] PAIN MANAGEMENT CONSULTATION Name: GRACIELA MULLEN Room #: REG PB Myles.#: [id number] Admission: 05/09/20 Attend Phys: Dillon Conti MD Discharge: Date of : 74 Report #: [id number] THIS REPORT FOR: cc: Farhat Rubio MD, Farhat Conti,Dillon Mcdonald MD ~ CC: Farhat Conti DATE OF SERVICE: 05/09/2020 CHIEF COMPLAINT: Low back pain, chronic cervicalgia and chronic headaches. HISTORY OF PRESENT ILLNESS: The patient is here today to discuss his low back pain. He also spent a fair amount of time discussing his headaches. He has been recently started on monthly injections of Emgality and is taking Amerge Triptan 10 times monthly for migraine-like symptoms. Headaches are generally 3-4 per week without trigger or aura. They are generally frontal but can work their way back into the occiput and he describes them as bilateral. Headaches have worsened since he has taken himself off of all opioids. He still remains on clonazepam 2 mg b.i.d. and lamotrigine 200 mg b.i.d., bupropion 150 mg daily, Lexapro 1 daily. His back bothers him mostly with standing and activity. He has more pain with back extension than with flexion. He denied leg pain at this time, but has in the past had radicular symptoms. PHYSICAL EXAMINATION: GENERAL: Pleasant gentleman wearing a mask. He seems more engaged than he did in his last visit, now off of some of his medication. VITAL SIGNS: He is 5 feet 7 inches, 190 pounds, BMI of 29.8. Blood pressure 136/95, heart rate 82, respirations 16, O2 sat 100% on room air. CHEST: Clear. CARDIAC: Rhythm is regular. MUSCULOSKELETAL: He moves independently, but has a mild antalgic slow gait. He has pain with forward flexion and pain is worse with extension. Rotational movements and [id number]-zj-vneh tilt exacerbate pain as well. Pain is across the lumbosacral segment and bilateral. Straight leg raising is negative. Sensation, strength are normal in lower extremities. IMPRESSION: 1. Chronic low back pain with spondylosis. 2. Chronic cervicalgia. 3. Migraine headaches. 4. Chronic depression. [address] [address] PAIN MANAGEMENT CONSULTATION Name: GRACIELA MULLEN Room #: REG PB MylesCarlos Eduardo#: [id number] Admission: 05/09/20 Attend Phys: Dillon Conti MD Discharge: Date of : 74 Report #: [id number] 5. History of opioid dependency, now off of all opioids. RECOMMENDATION: Bilateral lumbar facet injections. I suggest that we treat the lower three facet joints. He may at some point be a candidate for radiofrequency ablation. PROCEDURE: After informed consent, he was taken to the fluoroscopic suite, placed prone, skin prepped with ChloraPrep. We began on the right. Skin was anesthetized overlying the L5-S1, L4-L5 and L3-L4 facet joints. The 25-gauge needles were gently advanced in the posteroinferior capsule of the joint using biplanar fluoroscopic views. After negative aspiration, each needle was injected with one 0.5 mL of 0.5% bupivacaine and about 15 mg of triamcinolone. [place] were removed and a similar procedure was performed on the left using mirror image technique. He tolerated the injections well. He was observed in recovery room. He scores his back pain as a 0 at discharge. This would be considered a diagnostic injection. If the duration of response from these injections is long exceeding 1-2 months, I would simply repeat them. If they are short measured in days or weeks, we would consider our next injection to be a medial branch nerve block with consideration of proceeding on to radiofrequency ablation. Discussed this briefly with him and used a skeletal model to demonstrate. Followup visit planned as needed based upon response to the injection. ADDENDUM I also gave the patient meloxicam 7.5 mg b.i.d. for lumbar spondylosis, cervical spondylosis and that may be helpful for his migraines. He is going to give it a 1-month try and we had a lengthy discussion about avoiding all other nonsteroidal anti-inflammatory drugs and side effects. By: [id number] Dillon Conti MD /nt
[2020-05-09 13:56] VITALS: BP 136/95
--- NOTE | 2020-05-09 14:17 | NUR ---
Pain Clinic Assessment: 1. History of Osteoarthritis: Not Applicable History of Rheumatoid Arthritis: Not Applicable 2. Height: 5 ft. 7 in. 170.2 cm. Weight: 190.6 lb. oz. 86.456 kg. Patient's BMI: 29.8 3. Vital Signs: BP: 136/95 Pulse: 82 Resp: 16 Temp: 02 Sat: 96 ECG Mon: 4. Pain Intensity: 7 5. Fall Risk: Dizziness: N Needs help standing or walking: N Fallen in the last 3 months: N Fall risk comments: GETING SOMETHING OUT OF CLOSET/LOST BALANCE-LANDED ON BACK 6. Patient on Blood Thinner: None 7. History of Hypertension: N 8. Opioid Therapy greater than 6 weeks: Y Opiate Contract Signed: 05/28/16 9. Risk Assessment Tool Provided: LOW RISK 1 10. Functional Assessment Tool: 55/70 11. Recreational Drug Use: Never Drug Type: Tobacco Use: Never Smoker Tobacco Type: Amount or Packs/day: How Many Years: Alcohol Use: No Frequency: Quant:
== END | disposition home or self-care (01) ==
LOC: PAIN 06:52
PROVIDERS: ATTEND Anesthesiology Pain Medicine
DX: M47.816 Spondylosis without myelopathy or radiculopathy, lumbar region (principal); G89.29 Other chronic pain; M54.2 Cervicalgia; F32.89 Other specified depressive episodes; G43.909 Migraine, unspecified, not intractable, without status migrainosus; Z98.890 Other specified postprocedural states; Z79.899 Other long term (current) drug therapy; Z79.891 Long term (current) use of opiate analgesic

== ENCOUNTER → 2021-03-27 | Outpatient (CLI) | payer OTHER ==
[~2021-03-27] VITALS: Ht 170.2 cm; Wt 93.2 kg
[~2021-03-27] MED LIST changes: +NORCO7.5 PO
[2021-03-27 09:02] VITALS: BP 149/99
--- NOTE | 2021-03-27 09:33 | NUR ---
Pain Clinic Assessment: 1. History of Osteoarthritis: Not Applicable History of Rheumatoid Arthritis: Not Applicable 2. Height: 5 ft. 7 in. 170.2 cm. Weight: 205.4 lb. oz. 93.169 kg. Patient's BMI: 32.2 3. Vital Signs: BP: 149/99 Pulse: 80 Resp: 14 Temp: 02 Sat: 96 ECG Mon: 4. Pain Intensity: 3 5. Fall Risk: Dizziness: N Needs help standing or walking: N Fallen in the last 3 months: Y Fall risk comments: GETING SOMETHING OUT OF CLOSET/LOST BALANCE-LANDED ON BACK 6. Patient on Blood Thinner: None 7. History of Hypertension: N 8. Opioid Therapy greater than 6 weeks: Y Opiate Contract Signed: 05/28/16 9. Risk Assessment Tool Provided: LOW RISK 1 10. Functional Assessment Tool: 55/70 11. Recreational Drug Use: Never Drug Type: Tobacco Use: Never Smoker Tobacco Type: Amount or Packs/day: How Many Years: Alcohol Use: Yes Frequency: Monthly Quant: 3
== END ==
LOC: PAIN 07:14
PROVIDERS: ATTEND Anesthesiology Pain Medicine
DX: M47.816 Spondylosis without myelopathy or radiculopathy, lumbar region (principal); M25.552 Pain in left hip; F32.9 Major depressive disorder, single episode, unspecified; F41.9 Anxiety disorder, unspecified; F40.00 Agoraphobia, unspecified; Z79.891 Long term (current) use of opiate analgesic; Z79.899 Other long term (current) drug therapy